=== PATIENT | male | born 1970 | race Caucasian/White ===

== ENCOUNTER → 2020-02-16 12:30 | Outpatient (CLI) | payer BC, SELFPAY ==
--- NOTE | ~2020-02-16 | MR_ITS ---
EXAMINATION: MR lumbar spine wo con DATE: 02/16/2020 13:46 INDICATION: Dorsalgia TECHNIQUE: Magnetic resonance imaging (MRI) of the lumbar spine was performed without intravenous con trast. Sequences included sagittal T2-weighted FSE, sagittal T2-weighted FS FSE, sagittal T1-weighted FSE, and axial T2-weighted FSE. COMPARISON: None FINDINGS: Chronic mild anterior wedging at T12 with <20% anterior vertebral body height loss. There is fibrofat ty degenerative endplate change along the anterior inferior endplate of T12. Marrow signal is otherwi se normal. Slight dextrocurvature centered at T12-L1 where there is disc desiccation and mild left-si ded predominant disc height loss. Mild disc desiccation and mild disc height loss at L5-S1. There is an annular fissure at this level with prominent left-sided disc extrusion which will be further detai led below. The conus medullaris terminates at L1-L2. There is normal signal in the caudal spinal cord . Paravertebral soft tissues are unremarkable. The following disc levels are specifically discussed: T12-L1: Disc is mildly bulging. There is mild bilateral facet joint osteoarthritis. There is no neura l foraminal stenosis. There is no central canal stenosis. L1-L2: The disc does not extend beyond the endplate margin. There is mild to moderate bilateral facet joint osteoarthritis. There is no neural foraminal stenosis. There is no central canal stenosis. L2-L3: The disc does not extend beyond the endplate margin. There is mild right and moderate left fac et joint osteoarthritis. There is no neural foraminal stenosis. There is no central canal stenosis. L3-L4: The disc does not extend beyond the endplate margin. There is mild bilateral facet joint osteo arthritis. There is mild left neural foraminal stenosis. There is no central canal stenosis. L4-L5: The disc does not extend beyond the endplate margin. There is mild bilateral facet joint osteo arthritis. There is mild bilateral neural foraminal stenosis. There is no central canal stenosis. L5-S1: Large left paracentral to foraminal zone disc extrusion which measures 12 mm medial collateral , 8 mm AP and which extends 9 mm caudal to the level of the superior endplate of S1. This severely na rrows the left lateral recess compressing the traversing left S1 nerve root. There is minimal left an d mild to moderate right facet joint osteoarthritis. There is mild left neural foraminal stenosis. Th ere is mild central canal stenosis. IMPRESSION: 1. Mild lumbar spondylosis with annular fissure and large left-sided disc extrusion at L5-S1 which ex erts mass effect upon the the traversing left S1 nerve root. Correlate clinically for muscle weakness of plantar flexion, sensory change of the lateral foot and small toe, and depressed ankle reflex. Reviewed, dictated and finalized at location A. IMPRESSION: 1. Mild lumbar spondylosis with annular fissure and large left-sided disc extru vlad at L5-S1 which exerts mass effect upon the the traversing left S1 nerve ro ot. Correlate clinically for muscle weakness of plantar flexion, sensory change of the lateral foot and small toe, and depressed ankle reflex.
== END ==
PROVIDERS: PCP Family Medicine; Visit Provider Family Medicine
DX: M47.896 Other spondylosis, lumbar region (principal)
CPT/HCPCS: 72148

== ENCOUNTER 2021-08-14 06:35 | Outpatient (CLI) | payer BC, SELFPAY ==
[2021-08-14 07:40] LABS: Alanine Aminotransferase 37 U/L (4-50); Albumin Level 4.1 g/dL (3.5-5.1); Alkaline Phosphatase 79 U/L (38-126); Aspartate Amino Transferase 34 U/L (17-59); Bilirubin,Total 0.7 mg/dL (0.2-1.3); Cholesterol 254 mg/dL (0-200); HDL Direct 48 mg/dL; Triglycerides 163 mg/dL (<150)
[2021-08-14 07:51] LABS: LDL Cholesterol Direct 135 mg/dL
[2021-08-14 08:11] LABS: Prostate Specific Antigen 0.9 ng/mL (< OR = 4.0)
== END 2021-08-14 06:36 | disposition home or self-care (01) ==
LOC: ANHLAB 06:40
PROVIDERS: PCP Family Medicine; Visit Provider Family Medicine
DX: E78.2 Mixed hyperlipidemia (principal); Z13.220 Encounter for screening for lipoid disorders; Z12.5 Encounter for screening for malignant neoplasm of prostate
CPT/HCPCS: 36415; 80061; 80076; 84153; G0103

== ENCOUNTER 2021-12-01 07:58 | Outpatient (CLI) | payer BC, SELFPAY ==
--- NOTE | 2021-12-02 16:22 | WPDHOMESLEEP ---
Sleep Study - Home Unattended Date of Study: 12/01/21 <Mercedes Alvarado DO - Last Filed: 12/02/21 16:54> Ordering Provider: Gregory Ryan APRN <Mercedes Avlarado DO - Last Filed: 12/02/21 16:54> Interpreting Provider: Mercedes Alvarado DO <Mercedes Alvarado, DO - Last Filed: 12/02/21 16:54> Home Sleep Study Type: Apnea Link Air <Mercedes Alvarado DO - Last Filed: 12/02/21 16:54> Height: 1.88 m <Mercedes Alvarado DO - Last Filed: 12/02/21 16:54> Weight: 99.79 kg <Mercedes Alvarado DO - Last Filed: 12/02/21 16:54> Body Mass Index: 28.2 <Mercedes Alvarado DO - Last Filed: 12/02/21 16:54> Neck Circumference (inches): 16.5 <Mercedes Alvarado DO - Last Filed: 12/02/21 16:54> Monson: 9 <Mercedes Alvarado DO - Last Filed: 12/02/21 16:54> Reason for Sleep Study Previously diagnosed with JUAN JOSE. Had a Split Study in January 2014 that showed an AHI of 17.1. Prescribed CPAP. Ended up switching to an oral appliance. Currently uses the same oral appliance from 2013 but it does cause some TMJ issues. <Mercedes Alvarado DO - Last Filed: 12/02/21 16:54> Sleep History The patient is a 51-year-old female with obstructive sleep apnea and tobacco use disorder that had a home sleep test ordered by his investment professional due to residual daytime sleepiness despite using his mandibular advancement device. The sleep history was based off him being compliant with the mandibular advancement device. The patient constantly awakens from sleep short of breath. He denies awakening at night with heartburn, belching or cough. He frequently snores loud enough that others complain. He occasionally has trouble falling asleep when he has a cold. He occasionally wakes up gasping for air throughout the night. He occasionally has breathing problems at night observed by himself or others. He rarely sweats excessively at night. He rarely notices heart palpitations or irregular heartbeats during the night. He constantly falls asleep during the day and while driving. He denies sleep paralysis, cataplexy and hypnagogic / hypnopompic hallucinations. He frequently has trouble at work due to sleepiness. He rarely has nightmares. He constantly has thoughts racing through his mind. He denies feeling sad, depressed or anxious. He denies noticing parts of his body jerk. He denies kicking throughout the night. He frequently has crawling and aching feelings in his legs. He denies having leg pain during the night. He frequently grinds his teeth during sleep and occasionally awakens with morning jaw pain. He denies being bothered by pain during the day and being awakened by pain during the night. He occasionally wakes up feeling stiff in the morning. He goes to bed at 9:00 p.m. on weekdays and 10:00 p.m. on the weekends. He can fall asleep within minutes. He wakes up 1-2 times per night. He will toss and turn until his alarm turns on at 4:50 a.m.. If he wakes up throughout the night, he will stay awake between 1 and 3 hours. He wakes up at 4:50 a.m. on the weekdays and 6:00 a.m. on the weekends. He typically gets 5 hours of sleep per night. He will stay in bed for 5 minutes after awakening in the morning. He currently lives with his . He denies consuming caffeinated beverages within 2 hours of bedtime. He does not engage in physical exercise before bedtime. He will watch television before falling asleep. He will take naps in the afternoon or the evening and they are refreshing. He will consume 2 glasses of caffeinated iced tea in the morning. He currently smokes 4 cigarettes per day. He denies alcohol and recreational drug use. <Mercedes Alvarado DO - Last Filed: 12/02/21 16:54> [facility] Past Medical History Medical History: Medical History Bilateral hand numbness BMI 28.0-28.9,adult BMI 29.0-29.9,adult Screening f
[2021-12-02 16:39] VITALS: BMI 28.2
== END 2021-12-02 11:30 | disposition home or self-care (01) ==
LOC: ANHCSM 08:00
PROVIDERS: PCP Family Medicine; Visit Provider Nurse Practitioner Family
DX: G47.39 Other sleep apnea (principal); G47.33 Obstructive sleep apnea (adult) (pediatric)
CPT/HCPCS: 95806

== ENCOUNTER 2021-12-26 09:52 | Outpatient (CLI) | payer BC, SELFPAY ==
[2021-12-26 10:23] LABS: Hematocrit 46.9 % (42.0-52.0); Hemoglobin 15.7 g/dL (14.0-18.0); Mean Corpuscular HGB Conc 33.5 g/dl (32-36); Mean Corpuscular Hemoglobin 30.8 pg (26-34); Mean Corpuscular Volume 92.1 fl (80-100); Mean Platelet Volume 8.8 fl (7.4-10.4); Platelet Count Result 340 k/mm3 (150-375); Red Blood Count 5.09 M/mm3 (4.6-6.20); Red Cell Distribution Width 12.6 % (11.5-14.5); White Blood Count 12.2 K/mm3 (4.5-10.0)
[2021-12-26 10:30] LABS: Anion Gap 5 mmol/L (8-16); Blood Urea Nitrogen 14 mg/dL (9-20); Calcium 9.3 mg/dL (8.4-10.2); Carbon Dioxide 27 mmol/L (22-30); Chloride 106 mmol/L (98-107); Estimated Glomerular Filt Rate > 60; Glucose 98 mg/dL (65-110); Potassium 4.4 mmol/L (3.4-5.0); Sodium 138 mmol/L (137-145)
[2021-12-26 10:47] LABS: Iron 148 ug/dL (49-181)
[2021-12-26 10:56] LABS: Percent Iron Saturation 50 % (20-50)
== END 2021-12-26 09:53 | disposition home or self-care (01) ==
LOC: ANHLAB 09:54
PROVIDERS: PCP Family Medicine; Visit Provider Family Medicine
DX: G25.81 Restless legs syndrome (principal); G47.31 Primary central sleep apnea
CPT/HCPCS: 36415; 80048; 82728; 83540; 83550; 85027

== ENCOUNTER 2021-12-29 09:09 | Outpatient (CLI) | payer BC, SELFPAY ==
--- NOTE | 2021-12-29 09:16 | ECHO_ITS ---
Patient Info Name: Lee Cheng Age: 51 years : 1970 Gender: Male Ht: 74 in Wt: 225 lbs BSA: 2.33 m2 HR: 60 bpm BP: 136 / 72 mmHg Technical Quality: Good Exam Date: 12/29/2021 9:28 AM Exam Location: [facility] Patient Status: Outpatient Admit Date: 12/29/2021 Staff Ordering Physician: Gregory Ryan APRN Miller Apprentice: Omayra Mitchell RDCS Attending Provider: Gregroy Ryan APRN Referring Physician: Connor KHAN; Exam Type: CA echo doppler color flow Study Info Indications G47.39 - OTHER SLEEP APNEA Complete two-dimensional, color flow and Doppler transthoracic echocardiogram is performed. Summary 1. Complete two-dimensional, color flow and Doppler transthoracic echocardiogram is performed. 2. Left ventricular chamber dimension is normal. 3. Left ventricular systolic function is normal, estimated at 60-65%. 4. The left ventricular diastolic function is normal. 5. E/e' 7 is not elevated. 6. Global longitudinal strain is normal at -18.2%. 7. No pulmonary hypertension, estimated pulmonary arterial systolic pressure is 24 mmHg. Left Ventricle E/e' 7 is not elevated. Global longitudinal strain is normal at -18.2%. Left ventricular chamber dimension is normal. Left ventricular systolic function is normal, estimated at 60-65%. The left ventricular diastolic function is normal. Right Ventricle Right ventricular systolic function is normal and with normal TAPSE 2.6 cm. Right ventricular chamber dimension is normal. Left Atria Left atrial chamber dimension is normal. Right Atria Right atrial chamber dimension is normal. Aortic Valve The aortic valve is trileaflet. There is no aortic valve stenosis. There is no aortic valve regurgitation. Pulmonic Valve There is no pulmonic regurgitation. Mitral Valve There is no mitral valve stenosis. There is no mitral valve regurgitation. Tricuspid Valve There is no tricuspid valve regurgitation. No pulmonary hypertension, estimated pulmonary arterial systolic pressure is 24 mmHg. Pericardium/Pleural There is no pericardial effusion. Inferior Vena Cava Normal inferior vena cava with >50% collapse upon inspiration consistent with normal right atrial pressure, 5 mmHg. Aorta The aortic root size at the sinus of Valsalva is normal. Left Ventricular Outflow Tract Name Value Normal LVOT 2D LVOT Diameter 2.1 cm LVOT Doppler LVOT Peak Gradient 2 mmHg LVOT Mean Gradient 1 mmHg LVOT VTI 17 cm LVOT VTI/AV VTI Ratio 0.9 LVOT Stroke Volume 60 ml LVOT CO 3.6 l/min LVOT CI 1.6 l/min/m2 Pulmonic Valve Name Value Normal RVOT Doppler RVOT Peak Gradient
== END 2021-12-29 09:10 | disposition home or self-care (01) ==
LOC: ANHCARD 09:09
PROVIDERS: PCP Family Medicine; Visit Provider Nurse Practitioner Family
DX: G47.39 Other sleep apnea (principal)
CPT/HCPCS: 93306

== ENCOUNTER 2022-02-24 09:35 | Outpatient (CLI) | payer BC, SELFPAY ==
--- NOTE | 2022-03-05 13:11 | WPDSLEEPSTUD ---
Sleep Study Date of Study: 02/24/22 Ordering Provider: Sonia Longo MD Interpreting Physician: Sonia Longo MD Sleep Study Type: CPAP Titration Height: 1.88 m Weight: 107.048 kg Body Mass Index: 30.2 Neck Circumference (inches): 17 South Range: 8 Reason for Sleep Study Mixed sleep apnea * Split night study 02/01/2014 with AHI 17.2, 84% isaac, optimal 8 cm CPAP; PLM 56.4/hour that went away with CPAP, * Home sleep test 12/01/2021 with elevated AHI 13.7 with an elevated central apnea index 12.2 while wearing his mandibular advancement device; he returns for a CPAP titration. Sleep History Lee Cheng is a 52 year old male with obstructive sleep apnea using a mandibular advancement device. He had his initial split night study 02/01/2014, AHI was 17.1 with 84% lowest desaturation, excessive limb movements with 56.4/hour. He was not able to tolerate CPAP. He was treated successfully with the mandibular device until less than a year ago, he developed worsening symptoms including waking at night, gasping at night, non-restorative sleep and excessive daytime sleepiness. He was given a trial of modafinil however could not tolerate it due to anxiety and jitteriness. He is also developing TMJ symptoms, so the mandibular device is not well tolerated at this time. It helped for a quite a while. The sleep history was based off him being compliant with the mandibular advancement device. The patient constantly awakens from sleep short of breath. He denies awakening at night with heartburn, belching or cough. He frequently snores loud enough that others complain. He occasionally has trouble falling asleep when he has a cold. He occasionally wakes up gasping for air throughout the night. He occasionally has breathing problems at night observed by himself or others. He rarely sweats excessively at night. He rarely notices heart palpitations or irregular heartbeats during the night. He constantly falls asleep during the day and while driving. He denies sleep paralysis, cataplexy and hypnagogic / hypnopompic hallucinations. He frequently has trouble at work due to sleepiness. He rarely has nightmares. He constantly has thoughts racing through his mind. He denies feeling sad, depressed or anxious. He denies noticing parts of his body jerk. He denies kicking throughout the night. He frequently has crawling and aching feelings in his legs. He denies having leg pain during the night. He frequently grinds his teeth during sleep and occasionally awakens with morning jaw pain. He denies being bothered by pain during the day and being awakened by pain during the night. He occasionally wakes up feeling stiff in the morning. Normal bedtime is 9:00 p.m. on weekdays and 10:00 p.m. on the weekends. He can fall asleep within minutes. He wakes up 1-2 times per night. He will toss and turn until his alarm turns on at 4:50 a.m.. If he wakes up throughout the night, he will stay awake between 1 and 3 hours. He wakes up at 4:50 a.m. on the weekdays and 6:00 a.m. on the weekends. He typically gets 5 hours of sleep per night. He will stay in bed for 5 minutes after awakening in the morning. He currently lives with his . He takes naps in the afternoon or the evening and they are refreshing. Habits: Tobacco: currently smokes 4 cigarettes/ day. Caffeine: 2 glasses of caffeinated iced tea in the morning. No alcohol or recreational drug use. [facility] Past Medical History Medical History Bilateral hand numbness BMI 28.0-28.9,adult BMI 29.0-29.9,adult Central sleep apnea Mixed sleep apnea (~11/2021) Restless leg syndrome Screening for prostate cancer Family History Family History Father Cerebrovascular accident Family history of lung cancer Family history of coronary artery disease Mother No problems noted. Sibling No problems noted
[2022-03-05 14:47] VITALS: BMI 30.2
== END 2022-02-25 06:12 | disposition home or self-care (01) ==
LOC: ANHCSM 09:36
PROVIDERS: PCP Family Medicine; Visit Provider Internal Medicine Critical Care Medicine
DX: G47.39 Other sleep apnea (principal); G47.31 Primary central sleep apnea; G25.81 Restless legs syndrome
CPT/HCPCS: 95811

== ENCOUNTER 2023-06-11 06:34 | Outpatient (CLI) | payer BC, SELFPAY ==
[2023-06-11 07:30] LABS: Basophils Percent Auto 0.5 % (0.2-1.2); Eosinophils Absolute Auto 0.3 K/mm3 (0-0.3); Eosinophils Percent Auto 4.2 % (0-4.4); Hematocrit 48.6 % (42.0-52.0); Hemoglobin 16.2 g/dL (14.0-18.0); Immature Granulocyte Absolute 0.05 K/mm3 (0.00-0.031); Immature Granulocyte Percent A 0.6 % (0-0.5); Lymphocytes Absolute Auto 2.44 K/mm3 (0.9-3.2); Lymphocytes Percent Auto 31.4 % (18.3-44.2); Mean Corpuscular HGB Conc 33.3 g/dl (32-36); Mean Corpuscular Volume 93.1 fl (80-100); Mean Platelet Volume 9.5 fl (7.4-10.4); Monocytes Absolute Auto 0.6 K/mm3 (0.1-0.6); Monocytes Percent Auto 7.7 % (2.6-8.5); Neutrophils Absolute Auto 4.3 K/mm3 (1.3-6.7); Neutrophils Percent Auto 55.6 % (45.5-73.1); Platelet Count Result 249 k/mm3 (150-375); Red Blood Count 5.22 M/mm3 (4.6-6.20); White Blood Count 7.8 K/mm3 (4.5-10.0)
[2023-06-11 07:34] LABS: Appearance Urine Clear (Clear); Bilirubin Urine Negative (Negative); Blood Urine Negative (Negative); Color Urine Yellow (Yellow); Glucose Urine UA Negative (Negative); Ketones Urine Negative (Negative); Leukocyte Esterase Ur Negative LEU/UL (NEGATIVE); Nitrate Urine Negative (Negative); Protein Urine Negative (Negative); Specific Grav Ur 1.016 (1.001-1.035); Urobilinogen Urine 0.2 mg/dL (<2.0); pH Urine 7.5 (5.0-9.0)
[2023-06-11 07:47] LABS: Alanine Aminotransferase 44 U/L (6-50); Albumin Level 4.4 g/dL (3.5-5.1); Alkaline Phosphatase 67 U/L (38-126); Anion Gap 3 mmol/L (8-16); Aspartate Amino Transferase 37 U/L (17-59); Bilirubin,Total 0.8 mg/dL (0.2-1.3); Blood Urea Nitrogen 11 mg/dL (9-20); Calcium 9.3 mg/dL (8.4-10.2); Carbon Dioxide 31 mmol/L (22-30); Chloride 104 mmol/L (98-107); Cholesterol 273 mg/dL (0-200); Estimated Glomerular Filt Rate > 60; Glucose 90 mg/dL (65-110); HDL Direct 43 mg/dL; Potassium 4.1 mmol/L (3.4-5.0); Sodium 138 mmol/L (137-145); Triglycerides 204 mg/dL (<150)
[2023-06-11 07:58] LABS: LDL Cholesterol Direct 167 mg/dL
[2023-06-11 08:17] LABS: Prostate Specific Antigen 0.8 ng/mL (< OR = 4.0)
[2023-06-11 08:19] LABS: Add Urine Microscopic? NO
[2023-06-16 10:41] LABS: Testosterone Free 90.9 pg/mL (35.0-155.0); Testosterone Total 606 ng/dL (250-1100)
== END 2023-06-11 06:35 | disposition home or self-care (01) ==
PROVIDERS: PCP Family Medicine; Visit Provider Family Medicine
DX: R35.89 Other polyuria (principal); E78.2 Mixed hyperlipidemia; Z13.220 Encounter for screening for lipoid disorders; Z12.5 Encounter for screening for malignant neoplasm of prostate
CPT/HCPCS: 36415; 80053; 80061; 81003; 82248; 84153; 84402; 84403; 85025; G0103

== ENCOUNTER 2023-07-08 02:44 | Day surgery (SDC) | payer BC, SELFPAY ==
[2023-06-29 10:30] VITALS: BMI 29.5
[2023-07-08 09:02] VITALS: BP 116/84; PULSE 74; RESP 16; TEMP 36.4; O2SAT 99; BMI 29.0
[2023-07-08] MEDS: LACTATED RINGERS 1,000 ML 150 ML IV CONT (09:15)
--- NOTE | 2023-07-08 09:44 | WPDANESEPPF ---
Anes - Initial Pre Proc Eval Procedure: Operation Date: 07/08/23 10:00 Proposed Procedures p Screening Colonoscopy - Jaxon Strickland MD Date/Time: 07/08/23 09:44 Surgeon: Jaxon Strickland MD Pre Op Diagnosis: neoplasm screening Patient Data Age: 53 Gender: M Height: 1.88 m Weight: 102.5 kg Last Vital Signs Temp 97.6 F 07/08/23 09:02 Pulse 74 07/08/23 09:02 Resp 16 07/08/23 09:02 BP 116/84 07/08/23 09:02 Pulse Ox 99 07/08/23 09:02 O2 Del Method Room Air 07/08/23 09:02 Allergies Allergy/AdvReac Type Severity Reaction Status Date / Time No Known Allergies Allergy Verified 07/08/23 09:01 Home Medications Medication Instructions Recorded Confirmed Type esomeprazole magnesium 20 mg 20 mg PO DAILY 10/29/21 07/08/23 History capsule,delayed release (Nexium) loratadine 10 mg tablet (Claritin) 10 mg PO DAILY 10/29/21 07/08/23 History omega-3 fatty acids-vitamin E 1 cap PO DAILY 06/29/23 07/08/23 History 1,000 mg capsule Patient hx anesthesia problems: none Family hx anesthesia problems: none Results Review: All pre-operative results and documents have been reviewed as part of the pre-operative evaluation. [facility] Past Medical History Medical History (Updated 05/14/23 @ 10:02 by Luis Almanza MD) Bilateral hand numbness BMI 28.0-28.9,adult BMI 29.0-29.9,adult Central sleep apnea Mixed sleep apnea (~11/2021) Polyuria Restless leg syndrome Screen for colon cancer Screening for prostate cancer Skin lesion of face Family History Family History Father Cerebrovascular accident Family history of lung cancer Family history of coronary artery disease Mother No problems noted. Sibling No problems noted. Other Family history of allergic disorder Family history of arthritis Family history of kidney disease Family history of malignant neoplasm Social History Social History Smoking packs per day: 1 Smoking cigarettes per day: 20.0 Years smoked: 30 Smoking pack-years: 30.00 Smoking status: Current some day smoker Tobacco type: cigarettes Alcohol intake: current Drinks per week: 20 Substance use: never Substance use type: does not use Lack of Transportation: No Lack of Food: Never True Current Housing: I Have Housing Concerned About Future Housing: No Difficulty Paying Gas/Electric Bills: No Difficulty Paying for Meds: No Currently Unemployed: No Education: High School Diploma/GED Difficulty w/ Childcare or Family Care: No Living arrangements: with family Occupation/Education: occupation Additional occupation/education comments: sales Gender identity (if verbalized by the patient): Male Spiritual care concerns: No Anes - Eval Final PreProcedure Day of Procedure 07/08/23 09:44 Patient weight: normal Heart: regular rate and rhythm Lungs: clear to auscultation Airway: Mallampati scale class II Neurological: alert and oriented Last oral intake: >/= 8 hours ASA classification: II Emergent: no Anesthetic plan: proceed Anesthesia type and monitoring: general GIVS and standard monitoring Results Review: All pre-operative results and documents have been reviewed as part of the pre-operative evaluation. Informed Consent: The patient's anesthetic plan and its attendant risks and benefits were discussed with the patient/family/POA. Questions were solicited and answers provided to the satisfaction of the patient/family/POA.
--- NOTE | 2023-07-08 09:46 | PM.HPGS ---
History of Present Illness History of Present Illness Consent: Risks, benefits, and alternatives have been discussed and questions answered. Patient agrees to proceed with procedure. Chief complaint: neoplasm screening Narrative: Lee Cheng is a 53 year old male here for first screening colonoscopy Review of Systems Constitutional: Constitutional: Denies headache(s) and Denies weakness Eyes: Eyes: Denies blurry vision ENT: Reports Normal hearing present, Denies headache(s) and Denies neck pain Cardiovascular: Cardiovascular: Denies chest pain and Denies dyspnea Respiratory: Respiratory: Denies dyspnea Gastrointestinal: Gastrointestinal: Reports no additional gastrointestinal complaints Genitourinary: Genitourinary: Denies dysuria Musculoskeletal: Musculoskeletal: Denies neck pain Integumentary/Breasts: Skin/Breast: Denies dry skin Neurologic: Reports Normal hearing present, Denies headache(s) and Denies weakness Psychiatric: Psychiatric: Denies anxiety Endocrine: Endocrine: Denies change in body appearance Hematologic/Lymphatic: Hematologic/Lymphatic: Denies easy bleeding Allergic/Immunologic: Allergic/Immunologic: Denies urticaria PMFSH Past Medical History Medical History (Updated 05/14/23 @ 10:02 by Luis Almanza MD) Bilateral hand numbness BMI 28.0-28.9,adult BMI 29.0-29.9,adult Central sleep apnea Mixed sleep apnea (~11/2021) Polyuria Restless leg syndrome Screen for colon cancer Screening for prostate cancer Skin lesion of face Family History Family History Father Cerebrovascular accident Family history of lung cancer Family history of coronary artery disease Mother No problems noted. Sibling No problems noted. Other Family history of allergic disorder Family history of arthritis Family history of kidney disease Family history of malignant neoplasm Social History Social History Smoking packs per day: 1 Smoking cigarettes per day: 20.0 Years smoked: 30 Smoking pack-years: 30.00 Smoking status: Current some day smoker Tobacco type: cigarettes Alcohol intake: current Drinks per week: 20 Substance use: never Substance use type: does not use Lack of Transportation: No Lack of Food: Never True Current Housing: I Have Housing Concerned About Future Housing: No Difficulty Paying Gas/Electric Bills: No Difficulty Paying for Meds: No Currently Unemployed: No Education: High School Diploma/GED Difficulty w/ Childcare or Family Care: No Living arrangements: with family Occupation/Education: occupation Additional occupation/education comments: sales Gender identity (if verbalized by the patient): Male Spiritual care concerns: No Meds Home Medications and Allergies Home Medications Medication Instructions Recorded Confirmed Type esomeprazole magnesium 20 mg 20 mg PO DAILY 10/29/21 07/08/23 History capsule,delayed release (Nexium) loratadine 10 mg tablet (Claritin) 10 mg PO DAILY 10/29/21 07/08/23 History omega-3 fatty acids-vitamin E 1 cap PO DAILY 06/29/23 07/08/23 History 1,000 mg capsule Allergies Allergy/AdvReac Type Severity Reaction Status Date / Time No Known Allergies Allergy Verified 07/08/23 09:01 Vital Signs Vital Signs - 24 hr 07/08/23 09:02 Temperature 97.6 F Pulse Rate 74 Respiratory Rate 16 Blood Pressure 116/84 Pulse Oximetry 99 Oxygen Delivery Room Air Exam Const: General: comfortable and no acute distress HENMT: Face/Nose/Sinus: Normal nares present Eyes: General: appearance normal, both eyes and all related structures Neck: Neck: no JVD Resp: Auscultation: clear to auscultation bilaterally Cardio: Rate: regular rate Rhythm: regular rhythm GI: Inspection: non-distended GI Palp: Yes Soft to palpation Skin: General skin
[2023-07-08 10:02] VITALS: BP 102/63; PULSE 78; RESP 21; O2SAT 94
[2023-07-08 10:12] VITALS: BP 103/60; PULSE 70; RESP 22; O2SAT 99
[2023-07-08 10:22] VITALS: BP 102/71; PULSE 64; RESP 16; O2SAT 99
== END 2023-07-08 10:30 | disposition home or self-care (01) ==
PROVIDERS: PCP Family Medicine; Visit Provider Internal Medicine Gastroenterology
PROC: 0DJD8ZZ Inspection of Lower Intestinal Tract, Via Natural or Artificial Opening Endoscopic (ICD-10-PCS; CPT 45378; principal; 2023-07-08 10:00)
DX: Z12.11 Encounter for screening for malignant neoplasm of colon (principal); G47.31 Primary central sleep apnea; F17.210 Nicotine dependence, cigarettes, uncomplicated
CPT/HCPCS: 45378; J2704; J7120

== ENCOUNTER 2024-05-15 08:13 | Emergency (ER) | payer BC, SELFPAY ==
--- NOTE | 2024-05-15 08:14 | ED.EAR ---
HPI - Ear Problem General Chief complaint: Ear Stated complaint: ear infection Time Seen by Provider: 05/15/24 08:14 Source: patient Mode of arrival: ambulatory Limitations: no limitations History of Present Illness HPI Narrative: Patient is a 54-year-old male who presents with right ear ringing, decreased hearing, fullness and dizziness. Patient reports he was outside mowing and landscaping all weekend. Does take daily Claritin and Flonase intermittently. Denies any pain in ear, fever, chills, nausea, vomiting, diarrhea. MD Complaint: ear pain Related Data Home Medications Medication Instructions Recorded Confirmed esomeprazole magnesium 20 mg 20 mg PO DAILY 10/29/21 05/15/24 capsule,delayed release (Nexium) loratadine 10 mg tablet (Claritin) 10 mg PO DAILY 10/29/21 05/15/24 omega-3 fatty acids-vitamin E 1 cap PO DAILY 06/29/23 05/15/24 1,000 mg capsule Allergies Allergy/AdvReac Type Severity Reaction Status Date / Time No Known Allergies Allergy Verified 05/15/24 08:27 Review of Systems Review of Systems: All systems reviewed & are unremarkable except as noted in HPI and below Constitutional: Constitutional: Denies body ache(s), Denies chills, Denies fever(s), Denies headache(s) and Denies malaise Eyes: Eyes: Denies blurry vision, Denies eye discharge and Denies irritation ENT: Reports otalgia, Denies headache(s), Denies nasal congestion, Denies nasal discharge and Denies sore throat Cardiovascular: Cardiovascular: Denies chest pain, Denies edema, Denies palpitations and Denies dyspnea on exertion Respiratory: Respiratory: Denies cough and Denies dyspnea on exertion Gastrointestinal: Gastrointestinal: Denies abdominal pain, Denies diarrhea, Denies nausea and Denies vomiting Musculoskeletal: Musculoskeletal: Denies back pain, Denies arthralgias and Denies muscle weakness Integumentary/Breasts: Skin/Breast: Denies pruritus and Denies rash Neurologic: Denies headache(s) Psychiatric: Psychiatric: Reports no additional psychiatric complaints Endocrine: Endocrine: Denies palpitations PMFSH Past Medical History Medical History Bilateral hand numbness BMI 28.0-28.9,adult BMI 29.0-29.9,adult Central sleep apnea Mixed sleep apnea (~11/2021) Polyuria Restless leg syndrome Screen for colon cancer Screening for prostate cancer Skin lesion of face Family History Family History Father Cerebrovascular accident Family history of lung cancer Family history of coronary artery disease Mother No problems noted. Sibling No problems noted. Other Family history of allergic disorder Family history of arthritis Family history of kidney disease Family history of malignant neoplasm Social History Social History Smoking packs per day: 1 Smoking cigarettes per day: 20.0 Years smoked: 30 Smoking pack-years: 30.00 Smoking status: Current some day smoker Tobacco type: cigarettes Alcohol intake: current Drinks per week: 20 Substance use: never Substance use type: does not use Lack of Transportation: No Lack of Food: Never True Current Housing: I Have Housing Concerned About Future Housing: No Difficulty Paying Gas/Electric Bills: No Difficulty Paying for Meds: No Currently Unemployed: No Education: High School Diploma/GED Difficulty w/ Childcare or Family Care: No Living arrangements: with family Occupation/Education: occupation Additional occupation/education comments: sales Gender identity (if verbalized by the patient): Male Spiritual care concerns: No Comments At time of signature, agree with nursing past medical, surgical, social and family history. There is no relevant family history pertinent to the presenting complaint? Exam Const: General: cooperat
[2024-05-15 08:20] VITALS: BP 124/80; PULSE 102; RESP 20; TEMP 36.4; O2SAT 98
== END 2024-05-15 08:44 | disposition home or self-care (01) ==
PROVIDERS: Emergency Provider Nurse Practitioner Family; PCP Family Medicine
DX: H66.91 Otitis media, unspecified, right ear (principal); F17.210 Nicotine dependence, cigarettes, uncomplicated; G25.81 Restless legs syndrome
CPT/HCPCS: 99213; G0463

== ENCOUNTER 2024-07-20 13:36 | Emergency (ER) | payer BC, SELFPAY ==
[2024-07-20 13:44] VITALS: BP 128/71; PULSE 79; RESP 18; TEMP 36.7; O2SAT 99
--- NOTE | 2024-07-20 13:56 | ED.EAR ---
HPI - Ear Problem General Chief complaint: Ear Stated complaint: ear infection Time Seen by Provider: 07/20/24 13:58 Source: patient, RN notes reviewed and old records reviewed Mode of arrival: ambulatory Limitations: no limitations History of Present Illness HPI Narrative: patient presents with complaints of diminished hearing in right ear that has been present since April, now with some ringing in the ear. He reports that he has had some humming in the affected ear since April when he was diagnosed with otitis media. States that he took his antibiotics as prescribed. States that hearing has never quite recovered. He has not followed up with ENT or a primary care provider. He reports that he awakened this morning with ringing in the affected ear. He denies any injury or trauma. Denies Loud hobbies, denies excessive noise in the workplace. Related Data Home Medications Medication Instructions Recorded Confirmed esomeprazole magnesium 20 mg 20 mg PO DAILY 10/29/21 07/20/24 capsule,delayed release (Nexium) loratadine 10 mg tablet (Claritin) 10 mg PO DAILY 10/29/21 07/20/24 omega-3 fatty acids-vitamin E 1 cap PO DAILY 06/29/23 07/20/24 1,000 mg capsule Allergies Allergy/AdvReac Type Severity Reaction Status Date / Time No Known Allergies Allergy Verified 07/20/24 13:47 Review of Systems Review of Systems: All systems reviewed & are unremarkable except as noted in HPI and below Constitutional: Constitutional: Reports no additional constitutional complaints ENT: Reports system reviewed and no additional complaints, except as documented, Reports as per HPI and Denies Normal hearing present Cardiovascular: Cardiovascular: Reports no additional cardiovascular complaints Respiratory: Respiratory: Reports no additional respiratory complaints Gastrointestinal: Gastrointestinal: Reports no additional gastrointestinal complaints [facility] Past Medical History Medical History Bilateral hand numbness BMI 28.0-28.9,adult BMI 29.0-29.9,adult Central sleep apnea Mixed sleep apnea (~11/2021) Polyuria Restless leg syndrome Screen for colon cancer Screening for prostate cancer Skin lesion of face Family History Family History Father Cerebrovascular accident Family history of lung cancer Family history of coronary artery disease Mother No problems noted. Sibling No problems noted. Other Family history of allergic disorder Family history of arthritis Family history of kidney disease Family history of malignant neoplasm Social History Social History Smoking packs per day: 1 Smoking cigarettes per day: 20.0 Years smoked: 30 Smoking pack-years: 30.00 Smoking status: Current some day smoker Tobacco type: cigarettes Alcohol intake: current Drinks per week: 20 Substance use: never Substance use type: does not use Lack of Transportation: No Lack of Food: Never True Current Housing: I Have Housing Concerned About Future Housing: No Difficulty Paying Gas/Electric Bills: No Difficulty Paying for Meds: No Currently Unemployed: No Education: High School Diploma/GED Difficulty w/ Childcare or Family Care: No Living arrangements: with family Occupation/Education: occupation Additional occupation/education comments: sales Gender identity (if verbalized by the patient): Male Spiritual care concerns: No Comments At the time of my signature, I reviewed and agree with the nursing past medical, surgical, social, and family history. There is no relevant family history pertinent to the patient complaint. Exam Const: General: cooperative, no acute distress, alert and awake Orientation/consciousness: oriented to person, oriented to place and oriented to time HENMT: Head: normal to
== END 2024-07-20 14:13 | disposition home or self-care (01) ==
PROVIDERS: Emergency Provider Nurse Practitioner Family; PCP Family Medicine
DX: H73.891 Other specified disorders of tympanic membrane, right ear (principal); F17.210 Nicotine dependence, cigarettes, uncomplicated; G25.81 Restless legs syndrome
CPT/HCPCS: 99213; G0463

== ENCOUNTER 2024-09-02 13:30 | Outpatient (CLI) | payer BC, SELFPAY ==
--- NOTE | ~2024-09-02 | MR_ITS ---
EXAMINATION: MR brain IAC wo/w con DATE: 09/02/2024 14:25 INDICATION: Asymmetric sensorineural hearing loss. TECHNIQUE: Magnetic resonance imaging (MRI) of the brain, brainstem, and internal auditory canals was performed without and with 20 mL MultiHance intravenous contrast. COMPARISON: None. FINDINGS: There is no intracranial hemorrhage, acute infarction, or abnormal intracranial mass lesion . The ventricles are normal in size. The internal auditory canals and inner ears are normal. There is a right mastoid effusion. There is mucosal thickening in the paranasal sinuses. The orbits are dominique l. IMPRESSION: 1. Normal brain. Reviewed, dictated and finalized at location A. IMPRESSION: 1. Normal brain.
== END 2024-09-02 13:31 | disposition home or self-care (01) ==
LOC: ANHIMG 13:35
PROVIDERS: PCP Family Medicine; Visit Provider Nurse Practitioner Family
DX: H90.3 Sensorineural hearing loss, bilateral (principal)
CPT/HCPCS: 70553; A9577